=== PATIENT | male | born 1940 | race Caucasian/White ===

== ENCOUNTER → 2017-10-16 | Outpatient (CLI) | payer OTHER ==
[~2017-10-16] MED LIST: AMLODIPINE BESYL5 MG PO; ASPIRIN325 PO; ASPIRIN81 M2 PO; COLACE100 MG PO; LEVAQUIN 500 M500 M2 PO; METAMUCIL PAC1 UDPKT PO; MILK OF MA2400 MG/10 PO; OXYCODONE HCL 55 MG PO; TYLENOL325 MG PO; VYTORIN 10-401 EACH PO; XARELTO10 MG PO
== END ==
LOC: M.RAD 13:43
DX: J98.11 Atelectasis (principal)

== ENCOUNTER → 2018-09-18 | Outpatient (CLI) | payer OTHER, MEDICARE ==
--- NOTE | 2018-09-18 18:39 | CARDNUC ---
[place] [address] CARDIAC NUCLEAR IMAGING REPORT Name: MEMO MOONOY Room: [facility]#: [id number] Admission: 09/18/18 Attend Phys: Darin Baum, Discharge: Date of : 44 Date of Service: 09/18/18 1838 Report #: [id number] THIS REPORT FOR: //name// APPROVED REPORT Study performed: 09/18/2018 09:12:22 Exam: Nuclear Stress Test Indication: CAD Patient Location: Out-Patient Stress Tech: Margareth Stress Nurse: Wendy Bowling RN NM Tech:TAI Salas Ht: 5 ft 6 in Wt: 181 lbs BSA: 1.92 m2 BMI: 29.21 Medical History Medical History: hyperlipdimia, hypertension Medications: amlodipine, asa 81 Allergies: nkda Cardiac Risk Factors: age, hyperlipidemia, hypertension, familyhx Previous Cardiac Procedures: none Exercise History: Physically active Stress Test Details Stress Test: Pharmacologic stress testing performed using 0.4 mg of regadenoson per 5 mL given IV over 10 seconds. Reason for pharmacologic stress test: LBBB. HR Resting HR: 61 bpm Max Heart Rate (APMHR): 144 bpm Max HR Achieved: 73 bpm Target HR (85% APMHR): 122 bpm % of APMHR: 50 Recovery HR: 69 bpm BP Resting BP: 140/102 mmHg Max BP: 152/104 mmHg ECG Resting ECG: Sinus Bradycardia Stress ECG: Sinus Rhythm ST Change: [place] [address] CARDIAC NUCLEAR IMAGING REPORT Name: MEMO MOON Room: [facility]#: [id number] Admission: 09/18/18 Attend Phys: Darin Baum, Discharge: Date of : 44 Date of Service: 09/18/18 1838 Report #: [id number] Arrhythmia: None Recovery ECG: Sinus Rhythm Recovery ST Change: None Recovery Arrhythmia: None Clinical Reason for Termination: Completed protocol The patient tolerated Lexiscan infusion without significant symptoms. Stress ECG Conclusion The baseline 12-lead EKG shows sinus bradycardia without significant ST or T wave abnormality. EKGs obtained during and post Lexiscan infusion show sinus rhythm with no significant ST or T wave changes when compared to baseline. There were no stress-induced arrhythmias. NM EXAM: Myocardial Perfusion REST/STRESS Imaging Protocol: Rest Tc-99m/Stress Tc-99m 1 day Resting Data Rest SPECT myocardial perfusion imaging was performed in supine position 30 minutes following the intravenous injection of 10.6 mCi of Tc-99m Sestamibi. Time of rest injection: 0800 Date: 09/18/2018 The images were gated to evaluate regional wall motion and calculate left ventricular ejection fraction. Administration Route: IV Administration Site: Right AC Pharmacologic Stress Pharmacologic stress test was performed by injecting Regadenoson 0.4 mg IV push followed by the intravenous injection of 35.8 mCi of Tc-99m Sestamibi. Time of stress injection: 914 Date: 09/18/2018 Administration Route: IV Administration Site: Right AC Gated Stress SPECT was performed 40 minutes after stress injection. The images were gated to evaluate regional wall motion and calculate left ventricular ejection fraction. Prone imaging was performed. Study Quality Study: Good Artifact: [place] [address] CARDIAC NUCLEAR IMAGING REPORT Name: MEMO MOON Room: [facility]#: [id number] Admission: 09/18/18 Attend Phys: Darin Baum, Discharge: Date of : 44 Date of Service: 09/18/18 1838 Report #: [id number] Study Data At rest, the left ventricular ejection fraction was 76%.. Post stress, the left ventricular ejection was 77%.. TID = 0.92. Perfusion Normal left ventricular perfusion. Wall Motion Normal left ventricular wall motion. Nuclear Conclusion ECG Findings: negative for ischemia Clinical Findings: negative for ischemia Nuclear Findings: negative for ischemia Exercise Capacity: not assessed Left Ventricular Function: normal Risk Study: low Myocardial perfusion images show no defect to suggest infarct or ischemia. Left ventricular systolic function appears normal on gated studies. This is a low risk study. <Conclusion> The baseline 12-lead EKG shows sinus bradycardia without significant ST or T wave abnormality. EKGs obtained during and post Lexiscan infusion show sinus rhythm with no significant ST or T wave changes when compared to baseline. There were no stress-induced arrhythmias. <ELECTRONICALLY SIGNED> By: Cristian Woodson MD, FACC 09/18/181837 37 37 Cristian Woodson MD, FACC /INF
== END ==
LOC: M.NUC 09-03 14:37
DX: I25.10 Atherosclerotic heart disease of native coronary artery without angina pectoris (principal); M10.9 Gout, unspecified; I10 Essential (primary) hypertension; E78.5 Hyperlipidemia, unspecified; Z82.49 Family history of ischemic heart disease and other diseases of the circulatory system; Z82.3 Family history of stroke